=== PATIENT | female | born 1980 | race Caucasian/White ===

== ENCOUNTER 2024-12-17 13:38 | Emergency (ER) | payer BC, SELFPAY ==
[2024-12-17] VITALS (10 sets, daily range): BP systolic 142–188; BP diastolic 82–115; PULSE 80–115; RESP 15–19; TEMP 36.4–36.8; O2SAT 98–100; BMI 33.0
--- NOTE | 2024-12-17 13:46 | EKG12_ITS ---
Test Reason : CP Blood Pressure : */* mmHG Vent. Rate : 86 BPM Atrial Rate : 86 BPM P-R Int : 158 ms QRS Dur : 70 ms QT Int : 362 ms P-R-T Axes : 52 6 18 degrees QTcB Int : 433 ms Normal sinus rhythm Normal ECG Confirmed by Wero Husain ([id number]), content editor LICHA JURADO ([id number]) on 12/18/2024 8:19:54 AM Referred By: AK/ER Confirmed By: Wero Husain
--- NOTE | 2024-12-17 13:46 | RAD_ITS ---
PROCEDURE: CHEST 1 VIEW (PORTABLE) 12/17/2024 REASON FOR EXAM: CHEST PAIN TECHNIQUE: Frontal view of the chest. COMPARISON: None FINDINGS: Hardware: EKG leads Heart: Normal Lungs: Clear Bones: The bones are unremarkable. RAD/Chest 1 View (Portable) IMPRESSION: No acute cardiopulmonary process Reading Location: [id number]
[2024-12-17 14:12] LABS: Hematocrit 39.7 % (37-47); Hemoglobin 13.1 g/dL (12.0-15.0); Immature Granulocytes Count 0.020 X10^3/uL (0.0-0.0); Mean Corp Hgb Conc 33.0 g/dL (32-36); Mean Corpuscular Volume 83.2 fL (81-99); Mean Platelet Vol. 9.7 fl (6.2-12.0); NRBC Flagged by Analyzer 0 % (0-5); Platelet Count 224 K/mm3 (150-450); RBC Distribution Width CV 13.1 % (11.6-14.6); RBC Distribution Width SD 39.5 fl (35.1-43.9); Red Blood Count 4.77 M/mm3 (4.2-5.4); White Blood Count 5.3 K/mm3 (4.4-11.0)
[2024-12-17 15:08] LABS: Anion Gap 11 (5-15); BUN 15 mg/dL (4-19); BUN/Creat Ratio 18.2 RATIO (10-20); Calcium,Total 9.2 mg/dL (7.6-11.0); Carbon Dioxide 22.7 mmol/L (21.0-32.0); Chloride 105 mmol/L (98-108); Estimated Creatinine Clearance 99.72 ml/min (50-250); Glucose 84 mg/dL (70-99); Potassium 3.8 mmol/L (3.3-5.1); Troponin T High Sensitivity < 6 ng/L (<=14)
--- NOTE | 2024-12-17 15:13 | EDS_ITS ---
HPI History of Present Illness Chief Complaint: Chest Pain Narrative Narrative: Chief complaint and HPI: 44-year-old female with past medical history of HTN noncompliant with medication presents for evaluation of left-sided chest pain and HTN. Patient states she was at work when she developed a pain in the left side of her lateral chest. Described it as sharp. States it radiated into the left shoulder. Had her blood pressure checked and states that the SBP was in the 200s. Patient states she is supposed to be on antihypertensives but stopped taking them a a while ago. States she has not followed up with her PCP. States she does check her blood pressure at home periodically and her baseline is SBP in the 150s. Patient took a baby aspirin prior to arrival. States the pain has resolved. She denies any fever, chills, shortness of breath, abdominal pain, nausea, vomiting. Denies any bilateral lower extremity swelling or pain. No history of CAD. Non-smoker. Review of systems: See HPI Medications: As listed on the chart Allergies: As listed on the chart PFSH: Per chart Vital signs: As listed on the chart. Reviewed. Physical exam: Gen: A&O x3, NAD but anxious Head: Normocephalic, atraumatic Eyes: No sclera icterus, conjunctiva clear ENT: Moist mucous membranes Neck: Trachea midline, No JVD CV: Tachycardic, regular rhythm, no murmurs, no peripheral edema Resp: Lungs CTA BL, no w/r/c GI: Abd soft, non-distended, non-tender, no r/r/g Musc: Full ROM, no deformity Skin: Warm, dry Neuro: Alert, oriented, grossly intact, sensation intact Psych: Cooperative but anxious [facility] Allergy/AdvReac Type Severity Reaction Status Date / Time Penicillins Allergy Rash Verified 12/17/24 13:42 Social History (Updated 12/17/24 @ 14:16 by Imelda Harvey) housing: house Smoking Status: Never smoker EXAM Physical Exam Const Vital Signs: 12/17/24 13:39 12/17/24 14:15 12/17/24 14:15 Temperature 98.2 F Temperature Source Oral Pulse Rate 102 H Respiratory Rate 18 Respiratory Effort Normal Non-Labored Blood Pressure 188/104 H Blood Pressure Mean 132 Pulse Ox 100 Oxygen Delivery Method Room Air Room Air 12/17/24 14:39 12/17/24 15:00 12/17/24 15:26 Temperature Temperature Source Pulse Rate 80 84 85 Respiratory Rate Respiratory Effort Blood Pressure 182/108 H 187/86 H 175/115 H Blood Pressure Mean 132 119 135 Pulse Ox 100 98 100 Oxygen Delivery Method 12/17/24 16:00 12/17/24 16:15 12/17/24 16:25 Temperature Temperature Source Pulse Rate 87 92 100 Respiratory Rate 15 Respiratory Effort Blood Pressure 164/106 H 142/109 H 152/91 H Blood Pressure Mean 125 120 111 Pulse Ox 100 98 Oxygen Delivery Method 12/17/24 17:00 Temperature Temperature Source Pulse Rate 115 H Respiratory Rate 16 Respiratory Effort Blood Pressure 173/100 H Blood Pressure Mean 124 Pulse Ox 99 Oxygen Delivery Method Room Air MDM MDM MDM Narrative Medical decision making narrative: 44-year-old female with past medical history of HTN noncompliant with medication presents for evaluation of left-sided chest pain and HTN. Patient states she was at work when she developed a pain in the left side of her lateral chest. Described it as sharp. States it radiated into the left shoulder. Had her blood pressure checked and states that the SBP was in the 200s. Patient states she is supposed to be on antihypertensives but stopped taking them a a while ago. Patient took a baby aspirin prior to arrival and chest pain has resolved. On presentation, patient no acute distress but anxious. She is hypertensive with SBP in the 180s. Differential diagnosis includes but is not limited to hypertension urgency, hypertensive emergency, electrolyte abnormality, thyroid disease, ACS, PE, pneumothorax, pleurisy. Patient had chest pain order set ordered in triage per protocol. CBC without leukocytosis or anemia. Platelets unremarkable. BMP unremarkable. I did add on TSH and D-dimer. Hydralazine and aspirin ordered for symptoms. Will monitor blood pressure. TSH unremarkable. On reevaluation, patient's blood pressure has improved however she is still hypertensive and therefore will give another dose of hydralazine as well as p.o. antihypertensive, amlodipine. Troponin unremarkable x 2. Patient's D-dimer elevated at 0.73. Cannot rule out PE as a source of her symptoms therefore CTA chest ordered. Patient signed out to oncoming physician Dr. Almendarez. Final disposition pending CTA results. EKG: Interpreted by me/EM physician: EKG shows normal sinus rhythm without any acute ischemic changes. Heart rate 86. Diagnostic: Interpreted by me/EM physician: Chest x-ray without pneumonia, effusion, cardiomegaly, pneumothorax. Radiology in agreement. Lab Data Labs: Laboratory Results - last 24 hr 12/17/24 12/17/24 13:57 16:16 WBC 5.3 RBC 4.77 Hgb 13.1 Hct 39.7 MCV 83.2 MCH 27.5 MCHC 33.0 RDW Std Deviation 39.5 RDW Coeff of Ernesto 13.1 Plt Count 224 MPV 9.7 Immature Gran % (Auto) 0.400 Neut % (Auto) 45.5 L Lymph % (Auto) 41.9 H [place] % (Auto) 9.1 Eos % (Auto) 2.3 Baso % (Auto) 0.8 Absolute Neuts (auto) 2.4 Absolute Lymphs (auto) 2.21 Nucleated RBC % 0 Sodium 138 Potassium 3.8 Chloride 105 Carbon Dioxide 22.7 Anion Gap 11 BUN 15 Creatinine 0.81 Estim Creat Clear Calc 99.72 Est GFR (MDRD) Non-Af 90 BUN/Creatinine Ratio 18.2 Glucose 84 Calcium 9.2 Troponin T High Sens < 6 Troponin T Hi Sens 2 Hr < 6 TSH 1.990 Radiography Diagnostic Testing: Clinical Impression(s) from Imaging Studies Chest X-Ray 12/17/24 13:46 IMPRESSION: No acute cardiopulmonary process Reading [id number] Triage Chief Complaint: Chest Pain ED Provider: Francisco Javier Handley Dx/Rx/DC Orders Primary Care Provider: Ryan June Referrals: Ryan June MD [Primary Care Provider] - Print Language: Nigerian
[2024-12-17 17:06] LABS: Troponin T High Sens 2 HR < 6 ng/L (<=14)
[2024-12-17 17:07] LABS: D-Dimer Quantitative (DVT/PE) 0.73 FEU/ug/m (0.27-0.49)
--- NOTE | 2024-12-17 17:25 | CT_ITS ---
PROCEDURE: CTA CHEST W/WO CONTRAST 12/17/2024 REASON FOR EXAM: PE, ELEVATED DIMER TECHNIQUE: Procedure Code: [id number] Modality: CT Procedure: CTA CHEST W/WO CONTRAST Multiplanar Sagittal and Coronal images were obtained. CONTRAST: 100 mL of Isovue 370 One or more dose reduction techniques were used (e.g., Automated exposure control, adjustment of the mA and/or kV according to patient size, use of iterative reconstruction technique). RADIATION DOSE SUMMARY: DLP: 809 mGycm COMPARISON: none FINDINGS: PULMONARY ARTERIES: No evidence of pulmonary embolism. LUNGS AND PLEURA: No focal consolidations. No definite pulmonary edema. No mass or nodule. No pleural effusion. No pneumothorax. MEDIASTINUM: No lymphadenopathy or mass. The heart shows no acute findings. The aorta shows no acute findings. The pulmonary trunk, and branches of the vessels in the mediastinum are within normal limits. SUPRACLAVICULAR AND AXILLARY: No abnormalities seen in these regions. No mass or significant lymphadenopathy. UPPER ABDOMEN: 2.2 x 1.8 cm cyst within the liver. BONES AND SOFT TISSUES: The ribs are unremarkable. The visualized spine shows no significant acute findings. No focal bony mass lesions noted. The subcutaneous soft tissues are unremarkable. CT/CTA Chest W/WO Contrast IMPRESSION: No acute pulmonary emboli. No focal consolidations. Reading Location: [facility]
== END 2024-12-17 18:53 | disposition home or self-care (01) ==
PROVIDERS: Emergency Provider Surgery; PCP Family Medicine; Visit Provider Surgery
DX: R07.9 Chest pain, unspecified (principal); I10 Essential (primary) hypertension; Z91.148 Patient's other noncompliance with medication regimen for other reason
CPT/HCPCS: 71045; 71275; 80048; 84443; 84484; 85025; 85379; 93005; 96374; 96376; 99284; Q9967; A4216

== ENCOUNTER → 2025-02-18 | Outpatient (CLI) | payer BC, OTHER, SELFPAY ==
--- NOTE | 2025-02-18 07:08 | BI_ITS ---
EXAM: BI/SCRN MAMM (CAD)W/JE BILAT
== END | disposition home or self-care (01) ==
PROVIDERS: PCP Physician Assistant; Referring Provider Physician Assistant; Visit Provider Physician Assistant
DX: Z12.31 Encounter for screening mammogram for malignant neoplasm of breast (principal)
CPT/HCPCS: 77063; 77067